=== PATIENT | female | born 1955 ===

== ENCOUNTER → 2019-03-25 | Outpatient (CLI) | payer OTHER | END | disposition home or self-care (01) | LOC: PLD 12:26 → LAB SHORT 12:26 | DX: L57.0 Actinic keratosis (principal); L57.8 Other skin changes due to chronic exposure to nonionizing radiation | CPT/HCPCS: 88304; 88305 ==

== ENCOUNTER → 2021-03-30 | Outpatient (CLI) | payer OTHER | LOC: LAB 12:12 → LAB SHORT 12:12 | DX: D48.5 Neoplasm of uncertain behavior of skin (principal); D03.39 Melanoma in situ of other parts of face; D22.9 Melanocytic nevi, unspecified; L57.0 Actinic keratosis | CPT/HCPCS: 88305 ==